=== PATIENT | female | born 1940 | race Caucasian/White ===

== ENCOUNTER 2021-02-10 06:07 | Inpatient (IN) | payer MEDICARE ==
[~2021-02-10] VITALS: Ht 162.6 cm; Wt 68.0 kg
[2021-02-10 11:05] LABS: HEMOGLOBIN 13.9 gm/dl (12.3-15.3); RED BLOOD COUNT 4.66 M/UL (4.00-5.10); WHITE BLOOD COUNT 16.6 K/UL (4.5-11.0)
[2021-02-10 11:42] LABS: BUN/CREATININE RATIO 22 (0-10)
[2021-02-11 02:47] LABS: HEMOGLOBIN 13.3 gm/dl (12.3-15.3); RED BLOOD COUNT 4.5 M/UL (4.00-5.10); WHITE BLOOD COUNT 14.4 K/UL (4.5-11.0)
[2021-02-11 03:00] LABS: BUN/CREATININE RATIO 22 (0-10)
[2021-02-13 03:02] LABS: HEMOGLOBIN 12.7 gm/dl (12.3-15.3); RED BLOOD COUNT 4.31 M/UL (4.00-5.10); WHITE BLOOD COUNT 12.9 K/UL (4.5-11.0)
[2021-02-13 03:22] LABS: BUN/CREATININE RATIO 35 (0-10)
--- NOTE | 2021-02-13 12:10 | NUR ---
ST NOTIFIED OF NEW CONSULT
[2021-02-14 02:59] LABS: HEMOGLOBIN 11.6 gm/dl (12.3-15.3); RED BLOOD COUNT 3.94 M/UL (4.00-5.10); WHITE BLOOD COUNT 10.8 K/UL (4.5-11.0)
[2021-02-14 03:36] LABS: BUN/CREATININE RATIO 31 (0-10)
--- NOTE | 2021-02-14 09:55 | NUR ---
SOWMYA RN WITH HOSPICE HERE TO SPEAK TO FAMILY AND INFORM THEM ON THE HOSPICE PROGRAM
[2021-02-14] MEDS ORDERED: CLEOCIN HCL300 MG PO ×2 (13:05→13:36)
[2021-02-14] MEDS ORDERED: LEVOFLOXACIN750 MG PO (13:05)
[2021-02-14] MEDS ORDERED: LASIX TAB 20 MG20 MG PO (13:05)
[2021-02-14] MEDS ORDERED: IPRAT-ALBUT 0.5-3 ML NEB (13:05)
[2021-02-14] MEDS ORDERED: HUMIBID LA TAB600 MG PO (13:05)
[2021-02-14] MEDS ORDERED: CLOPIDOGREL75 MG PO (13:05)
[2021-02-14] MEDS ORDERED: LOPRESSOR 50 MG50 MG PO (13:05)
[2021-02-14] MEDS ORDERED: ATORVASTATIN CA20 MG PO (13:05)
[2021-02-14] MEDS ORDERED: ATIVAN1 MG PO (13:05)
--- NOTE | 2021-02-14 18:19 | NUR ---
STATES TO DC DISCHARGE R/T EQUIPEMENT NOT BEING ABLE TO BE DELIVERED TODAY PER COMPANY
[2021-02-15 02:51] LABS: HEMOGLOBIN 11.5 gm/dl (12.3-15.3); RED BLOOD COUNT 3.95 M/UL (4.00-5.10); WHITE BLOOD COUNT 10.4 K/UL (4.5-11.0)
[2021-02-15 03:12] LABS: BUN/CREATININE RATIO 28 (0-10)
[2021-02-15] MEDS ORDERED: K-DUR TAB 10 M10 MEQ PO (08:49)
[2021-02-15] MEDS ORDERED: CLEOCIN HCL300 MG PO ×2 (08:49→08:53)
[2021-02-15] MEDS ORDERED: LEVOFLOXACIN750 MG PO (08:53)
== END 2021-02-15 14:30 | DRG 871 ==
LOC: PROG CARE 06:07
PROVIDERS: Internal Medicine; Physician Assistant; ADMIT Internal Medicine
DX: A41.9 Sepsis, unspecified organism (principal); J69.0 Pneumonitis due to inhalation of food and vomit; J96.01 Acute respiratory failure with hypoxia; G93.41 Metabolic encephalopathy; I21.A1 Myocardial infarction type 2; I50.23 Acute on chronic systolic (congestive) heart failure; J15.1 Pneumonia due to Pseudomonas; F03.90 Unspecified dementia, unspecified severity, without behavioral disturbance, psychotic disturbance, mood disturbance, and anxiety; Z66 Do not resuscitate; Z51.5 Encounter for palliative care; F41.9 Anxiety disorder, unspecified; R65.20 Severe sepsis without septic shock; E87.6 Hypokalemia; Z20.822 Contact with and (suspected) exposure to COVID-19; B34.8 Other viral infections of unspecified site; Z88.6 Allergy status to analgesic agent; Z88.2 Allergy status to sulfonamides; Z88.8 Allergy status to other drugs, medicaments and biological substances; Z91.14 Patient's other noncompliance with medication regimen
CPT/HCPCS: ECHO; 36415; 36600; 71045; 80048; 80053; 82550; 82553; 82803; 83735; 83880; 84132; 84484; 85025; 85027; 85610; 85730; 92526; 92610; 93005; 93306; 94640; 94664; 94760; J1160; J1630; J1644; J1650; J1940; J1956; J2060; J3480; J3486